=== PATIENT | male | born 1970 | race Caucasian/White ===

== ENCOUNTER 2017-11-28 23:07 | Emergency (ER) | payer BC, OTHER ==
[2017-11-28 23:28] VITALS: BP 137/71; PULSE 78; RESP 18; TEMP 98.6; O2SAT 97
--- NOTE | 2017-11-28 23:53 | C.PDOC ---
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 Pt reports, " was hit with bat by accident, while playing". Pt c/o mild nasal deformity, swelling, left nostril bleeding. Otherwise, pt denies head injury, LOC, syncope , headache, dizziness, visual changes, focal deficits, dyspnea, SOB, denies any other active complaints. Ambulate to Ed for evaluation, no active nasal bleeding noted. Time Seen by Provider: 11/28/17 23:24 Chief Complaint (Nursing): ENT Problem History Per: Patient Onset/Duration Of Symptoms: Sudden Onset Past Medical History Reviewed: Historical Data, Nursing Documentation, Vital Signs Vital Signs: Last Vital Signs Temp 98.6 F 11/28/17 23:25 Pulse 78 11/28/17 23:25 Resp 18 11/28/17 23:25 BP 137/71 11/28/17 23:25 Pulse Ox 97 11/29/17 00:02 - Medical History PMH: Anxiety, HTN - [facility] Procedures INJECT/INFUSE NEC (06/14/14) Family History: States: No Known Family Hx - Social History Hx Alcohol Use: No Hx Substance Use: No - Immunization History Hx Tetanus Toxoid Vaccination: No Hx Influenza Vaccination: No Hx Pneumococcal Vaccination: No Review Of Systems Except As Marked, All Systems Reviewed And Found Negative. Constitutional: Negative for: Fever, Chills Eyes: Negative for: Vision Change ENT: Positive for: Nose Discharge. Negative for: Ear Discharge, Throat Pain Cardiovascular: Negative for: Light Headedness Respiratory: Negative for: Shortness of Breath, Wheezing Gastrointestinal: Negative for: Nausea, Vomiting, Abdominal Pain Musculoskeletal: Negative for: Neck Pain, Back Pain Skin: Positive for: Lesions Neurological: Negative for: Weakness, Numbness, Altered Mental Status, Headache , Dizziness Physical Exam - Physical Exam Appears: Well, Non-toxic, No Acute Distress Skin: Normal Color, Warm Head: Atraumatic, Normacephalic Eye(s): bilateral: PERRL Ear(s): Bilateral: Normal Nose: No Flaring, Epistaxis (Left nostril scant blood noted s/p epistaxis), No Deformity, Tenderness (nasal bridge with trace ecchymoses), No Septal Hematoma, Other (superficial abrasion to Right nasal ala) Oral Mucosa: Moist, No Drooling, No Trismus Tongue: Normal Appearing Lips: Normal Appearing Throat: No Drooling Neck: No Midline Cervical Tenderness, No Paracervical Tenderness, No Step Off Deformity, Supple Respiratory: No Decreased Breath Sounds, No Accessory Muscle Use, No Stridor, No Wheezing Extremity: Normal ROM, No Deformity, No Swelling Neurological/Psych: Oriented x3, Normal Speech, Normal Motor, Normal Sensation, Normal Reflexes ED Course And Treatment O2 Sat by Pulse Oximetry: 97 Pulse Ox Interpretation: Normal - Other Rad Nasal bones X-Ray: Interpreted by Me, Viewed By Me Interpretation: (+) nasal bone fx Progress Note: On re-eval, pt is awake, comfortable, not in any apparent distress. Afebrile, hemodynamicaly stable. Non-toxic. Tolerate Po well in ED. PulsEOx 97% RA. head: AT/NC. ENT: exam c/w nasal contusion r/o fx, left nostril s/p epistaxis. No obvious defomrity or laceration. No active epistaxis at present time. neck: Supple, (-) midlie tenderness. Lungs: CTA B/L, BS equal B/L. Neuorlogicaly intact. Nasal bones xray review (+) fx. Pt has clinical findings c/w head injury, facial contusion, nasal bone fx, closed. Parent advised on course of ds. Advised OBS 48 hrs for any sign of head injury. ref. to f/u with ENT In 1-2 days for re-eavl. Return to ED at any time if any worsening or new changes. Disposition Counseled Patient/Family Regarding: Studies Performed, Diagnosis, Need For Followup, Rx Given - Disposition Referrals: Arben Obrien MD [Staff Provider] - Disposition: HOME/ ROUTINE Disposition Time: 23:55 Condition: STABLE Additional Instructions: Keep head elevated, ice Avoid nose blowing Afrin nasal drops twice daily for 3-4 days Tylenol as need for pain Follow up with ENT in 2-3 days for re-evaluation. return to ED if any worsening or new changes. Instructions: Nose Fracture, Head Injury (ED) Forms: [employer] ([place]) - Clinical Impression Clinical Impression: Nasal fracture, Head injury
[2017-11-28] MEDS ORDERED: Oxymetazoline 0.05% Nasal Spray (30 ml) NS STA (23:56)
--- NOTE | 2017-11-29 10:17 | RAD ---
PROCEDURE: Bilateral nasal bones drainage 11/28/2018 HISTORY: Injury. COMPARISON: None available. TECHNIQUE: Frontal and lateral radiographs of the nasal bones. FINDINGS: Minimally displaced comminuted fractures of the right and left nasal bones. IMPRESSION: Bilateral minimally displaced comminuted fractures of the right and very
== END 2017-11-29 00:35 | disposition home or self-care (01) ==
LOC: C.ER 23:07
DX: S02.2XXA Fracture of nasal bones, initial encounter for closed fracture (principal); W22.8XXA Striking against or struck by other objects, initial encounter